=== PATIENT | male | born 1940 | race Caucasian/White ===

== ENCOUNTER 2021-02-13 06:53 | Day surgery (SDC) | payer MEDICARE, BC ==
[2021-02-12 16:14] LABS: BASOPHILS % (AUTO) 0.5 % (0-1); EOSINOPHILS # (AUTO) 0.1 X10'3 (0-0.9); EOSINOPHILS % (AUTO) 1.2 % (0-6); HEMATOCRIT 40.7 % (42.0-52.0); HEMOGLOBIN 13.5 g/dl (14.0-17.9); LYMPHOCYTES # (AUTO) 1.8 X10'3 (1.1-4.8); LYMPHOCYTES % (AUTO) 37.1 % (21-51); MEAN CORPUSCULAR HGB CONC 33.1 g/dL (33.0-36.5); MEAN CORPUSCULAR VOLUME 90.8 FL (78-98); MEAN PLATELET VOLUME 7.8 FL (7.4-10.4); MONOCYTES # (AUTO) 0.5 X10'3 (0-0.9); MONOCYTES % (AUTO) 9.5 % (2-12); NEUTROPHILS # (AUTO) 2.5 X10'3 (1.8-7.7); NEUTROPHILS % (AUTO) 51.7 % (42-75); PLATELET COUNT 173 X10'3 (140-440); RED BLOOD COUNT 4.48 X10'6 (4.70-6.10); WHITE BLOOD COUNT 4.9 X10'3 (4.5-11.0)
[2021-02-12 16:23] LABS: ALBUMIN 3.7 G/DL (3.4-5.0); ANION GAP 8 (8-16); BLOOD UREA NITROGEN 22 MG/DL (7-18); CALCIUM 8.7 MG/DL (8.5-10.1); CHLORIDE 107 MMOL/L (99-107); CREATININE 1.16 MG/DL (0.60-1.10); GLUCOSE 91 MG/DL (70-104); POTASSIUM 4.7 MMOL/L (3.5-5.1); SODIUM 145 MMOL/L (135-145); eGFR 61 ML/MIN
[2021-02-12 16:30] LABS: PARTIAL THROMBOPLASTIN TIME 35 SECONDS (22-32)
[~2021-02-13] VITALS: Ht 172.7 cm; Wt 76.4 kg
[2021-02-13] VITALS (16 sets, daily range): BP systolic 107–144; BP diastolic 56–79
[~2021-02-13 06:53] MED LIST: ASPI-611 PO; ATOR40TA7 PO; MULT-1074 PO; WARF5TAB76 PO
[2021-02-13] MEDS ORDERED: diphenhydrAMINE 25mg capsule PO PRN (07:15)
[2021-02-13] MEDS ORDERED: LIDOcaine/PRILOcaine 5gm cream TP ONE (07:15)
[2021-02-13] MEDS ORDERED: LORazepam 0.5 MG tablet PO PRN (07:15)
[2021-02-13] MEDS ORDERED: normal saline 1,000 ML IV SCH (07:15)
[2021-02-13] MEDS ORDERED: ENOX80DI8 SQ (07:29)
[2021-02-13] MEDS ORDERED: LIDOcaine 1% (10mg/ml)w/preservative injection 20ml MDV ONE (09:48)
[2021-02-13] MEDS ORDERED: midazolam 1 mg/ML 2ml injection ONE (09:48)
[2021-02-13] MEDS ORDERED: fentaNYL/PF 50MCG/1 ML 2ML syringe ONE (09:48)
[2021-02-13] MEDS ORDERED: verapamil 2.5 mg/ml inj IV ONE (09:48)
[2021-02-13] MEDS ORDERED: heparin 1,000unit/ml 10ml vial 10 ML ONE (09:48)
[2021-02-13] MEDS ORDERED: nitroGLYCERIN-Tridil 50MG/D5W 250 ML IV ONE (09:48)
[2021-02-13] MEDS ORDERED: iohexol 350MG/ML 100ml bottle IV ONE ×2 (09:49→11:21)
[2021-02-13] MEDS ORDERED: iohexol 350 MG/ML 50ML vial IV ONE ×2 (09:49→11:42)
[2021-02-13] MEDS ORDERED: heparin 25,000 UNIT/250ml bag 250 ML IV ONE (11:21)
[2021-02-13] MEDS ORDERED: clopidogrel 300mg tablet ONE (11:46)
[2021-02-13] MEDS ORDERED: atropine 0.1mg/ml 10ml syringe ONE (11:56)
[2021-02-13] MEDS ORDERED: HYDROcodone/acetaminophen 5mg/325mg tablet PO PRN (12:40)
[2021-02-13] MEDS ORDERED: normal saline 1000ml 1,000 ML IV SCH (12:40)
[2021-02-13] MEDS ORDERED: HYDROcodone/acetaminophen 10/325mg tab PO PRN (12:40)
[2021-02-13] MEDS ORDERED: proCHLORperazine 10 MG/2 ml inj IV PRN (12:45)
[2021-02-13] MEDS ORDERED: acetaminophen 325mg tablet PO PRN ×2 (12:45)
[2021-02-13] MEDS ORDERED: magnesium hydroxide 30ml (MOM) UD suspension PO PRN (12:45)
[2021-02-13] MEDS ORDERED: docusate sod 100mg capsule PO SCH (20:00)
[2021-02-14] MEDS ORDERED: clopidogrel 75mg tablet PO SCH (08:00)
== END 2021-02-13 20:00 | disposition home or self-care (01) ==
LOC: SSTAY O 06:53
PROVIDERS: ATTEND Internal Medicine Cardiovascular Disease
DX: R94.39 Abnormal result of other cardiovascular function study (principal); R06.02 Shortness of breath; I25.10 Atherosclerotic heart disease of native coronary artery without angina pectoris; E78.5 Hyperlipidemia, unspecified; I50.9 Heart failure, unspecified; M47.896 Other spondylosis, lumbar region; M47.894 Other spondylosis, thoracic region; G89.29 Other chronic pain; Z85.46 Personal history of malignant neoplasm of prostate; K21.9 Gastro-esophageal reflux disease without esophagitis; Z85.828 Personal history of other malignant neoplasm of skin; Z87.891 Personal history of nicotine dependence; Z86.010 Personal history of colon polyps; Z86.718 Personal history of other venous thrombosis and embolism; Z79.01 Long term (current) use of anticoagulants; Z98.890 Other specified postprocedural states; Z79.899 Other long term (current) drug therapy; Z92.21 Personal history of antineoplastic chemotherapy; Z82.49 Family history of ischemic heart disease and other diseases of the circulatory system; Z80.42 Family history of malignant neoplasm of prostate
CPT/HCPCS: 36415; 76937; 80048; 85025; 85347; 85610; 85730; 93005; 93458; 99152; 99153; C1725; C1751; C1769; C1874; C1894; C9600; J0461; J1644; J2001; J2250; J3010; J7030; Q0163; Q9967; A4620; A5120; A6258; J3490

== ENCOUNTER 2021-05-21 06:03 | Day surgery (SDC) | payer MEDICARE, BC ==
[2021-05-20 12:32] LABS: BASOPHILS % (AUTO) 0.6 % (0-1); EOSINOPHILS # (AUTO) 0.1 X10'3 (0-0.9); EOSINOPHILS % (AUTO) 1.3 % (0-6); HEMATOCRIT 39.9 % (42.0-52.0); HEMOGLOBIN 13.4 g/dl (14.0-17.9); LYMPHOCYTES # (AUTO) 1.7 X10'3 (1.1-4.8); LYMPHOCYTES % (AUTO) 35.2 % (21-51); MEAN CORPUSCULAR HEMOGLOBIN 30.9 PG (27.0-31.0); MEAN CORPUSCULAR HGB CONC 33.7 g/dL (33.0-36.5); MEAN CORPUSCULAR VOLUME 91.8 FL (78-98); MONOCYTES # (AUTO) 0.5 X10'3 (0-0.9); MONOCYTES % (AUTO) 9.9 % (2-12); NEUTROPHILS # (AUTO) 2.5 X10'3 (1.8-7.7); PLATELET COUNT 151 X10'3 (140-440); RED BLOOD COUNT 4.34 X10'6 (4.70-6.10); RED CELL DISTRIBUTION WIDTH 14.2 % (11.5-14.5); WHITE BLOOD COUNT 4.8 X10'3 (4.5-11.0)
[2021-05-20 12:37] LABS: ALBUMIN 3.6 G/DL (3.4-5.0); ANION GAP 4 (8-16); BLOOD UREA NITROGEN 18 MG/DL (7-18); BUN/CREATININE RATIO 16.1 (5.4-32.0); CALCIUM 8.5 MG/DL (8.5-10.1); CHLORIDE 107 MMOL/L (99-107); CREATININE 1.12 MG/DL (0.60-1.10); GLUCOSE 86 MG/DL (70-104); POTASSIUM 4.6 MMOL/L (3.5-5.1); SODIUM 142 MMOL/L (135-145); TOTAL CARBON DIOXIDE 30.7 MMOL/L (24-32); eGFR 63 ML/MIN
[2021-05-20 12:40] LABS: PARTIAL THROMBOPLASTIN TIME 39 SECONDS (22-32)
[~2021-05-21] VITALS: Ht 172.7 cm; Wt 75.7 kg
[2021-05-21] VITALS (12 sets, daily range): BP systolic 97–147; BP diastolic 47–140
[~2021-05-21 06:03] MED LIST changes: -ASPI-611 PO; +ENOX80DI8 SQ
[2021-05-21] MEDS ORDERED: cefazolin/dext.iso 2gm/100ml 100 ML IV ONE (06:25)
[2021-05-21] MEDS ORDERED: CLOP75TA15 PO (06:28)
[2021-05-21] MEDS ORDERED: ENOX80DI8 SQ (06:49)
[2021-05-21] MEDS ORDERED: ENOX80SY7 SUBCUT (06:49)
[2021-05-21] MEDS ORDERED: fentaNYL/PF 50MCG/1 ML 2ML syringe ONE (07:24)
[2021-05-21] MEDS ORDERED: midazolam 1 mg/ML 2ml injection ONE (07:24)
[2021-05-21] MEDS ORDERED: LIDOcaine 1% W/epiNEPHrine 1:100,000 20ml vial ONE ×2 (07:24→07:48)
[2021-05-21] MEDS ORDERED: ceFAZolin 1000mg inj ONE (07:24)
[2021-05-21] MEDS ORDERED: HYDROcodone/acetaminophen 10/325mg tab PO PRN (09:40)
[2021-05-21] MEDS ORDERED: HYDROcodone/acetaminophen 5mg/325mg tablet PO PRN (09:40)
[2021-05-21] MEDS ORDERED: vancomycin/NS 1 GM ADD-VANTAGE 250 ML X 1 DOSE IV ONE (11:00)
== END 2021-05-21 15:00 | disposition home or self-care (01) ==
LOC: SSTAY O 06:03
PROVIDERS: ATTEND Internal Medicine Cardiovascular Disease
DX: I49.5 Sick sinus syndrome (principal); I48.0 Paroxysmal atrial fibrillation; I25.10 Atherosclerotic heart disease of native coronary artery without angina pectoris; K21.9 Gastro-esophageal reflux disease without esophagitis; G89.29 Other chronic pain; E78.5 Hyperlipidemia, unspecified; Z79.01 Long term (current) use of anticoagulants; Z79.899 Other long term (current) drug therapy; Z95.5 Presence of coronary angioplasty implant and graft; Z86.718 Personal history of other venous thrombosis and embolism; Z85.46 Personal history of malignant neoplasm of prostate; Z85.828 Personal history of other malignant neoplasm of skin; Z98.890 Other specified postprocedural states; Z87.891 Personal history of nicotine dependence; Z80.42 Family history of malignant neoplasm of prostate; Z82.49 Family history of ischemic heart disease and other diseases of the circulatory system
CPT/HCPCS: 33208; 36415; 71046; 80048; 85025; 85610; 85730; 93005; 99152; 99153; C1785; C1894; C1898; J0690; J2250; J3010; J3370; A4565; A4620; A6258; A6449

== ENCOUNTER 2021-05-23 17:42 | Emergency (ER) | payer MEDICARE, BC ==
[~2021-05-23] VITALS: Ht 172.7 cm; Wt 75.4 kg
[~2021-05-23 17:42] MED LIST changes: +CLOP75TA15 PO; -ENOX80DI8 SQ; +ENOX80SY7 SUBCUT
[2021-05-23 17:45] VITALS: BP 151/81
--- NOTE | 2021-05-23 18:36 | NUR ---
Dressing to left chest changed to non adherent with sterile 4x4 gauze with tegaderm,pressure applied per Dr. Millard.We will monitor.
--- NOTE | 2021-05-23 19:32 | NUR ---
Dressing removed to check bleeding. Scant blood on dressing. Alginate dressing applied, covered with nonstick, then sterile gauze. Large tegaderm over the area. Bag of NS placed over the wound to apply pressure.
== END 2021-05-23 20:39 | disposition home or self-care (01) ==
LOC: ER 17:43
DX: L76.22 Postprocedural hemorrhage of skin and subcutaneous tissue following other procedure (principal); E78.00 Pure hypercholesterolemia, unspecified; Z48.01 Encounter for change or removal of surgical wound dressing; Z98.890 Other specified postprocedural states; Z95.0 Presence of cardiac pacemaker; Z79.01 Long term (current) use of anticoagulants; Z79.899 Other long term (current) drug therapy
CPT/HCPCS: 99281; 99283

== ENCOUNTER 2021-12-06 12:03 | Emergency (ER) | payer MEDICARE, BC ==
[~2021-12-06] VITALS: Ht 172.7 cm; Wt 75.0 kg
[2021-12-06 12:13] VITALS: BP 127/70
[2021-12-06] MEDS ORDERED: bacitracin 15gm ointment TP ONE (13:55)
[2021-12-06] MEDS ORDERED: TETanus/Pertussis (Acell)/Diphther VAC/PF (Tdap-Adult) 0.5ml syringe IMVAC ONE (13:55)
== END 2021-12-06 14:49 | disposition home or self-care (01) ==
LOC: ER 12:04
DX: S61.211A Laceration without foreign body of left index finger without damage to nail, initial encounter (principal); E78.00 Pure hypercholesterolemia, unspecified; Z95.0 Presence of cardiac pacemaker; Z98.1 Arthrodesis status; Z79.899 Other long term (current) drug therapy; Z79.01 Long term (current) use of anticoagulants; W01.0XXA Fall on same level from slipping, tripping and stumbling without subsequent striking against object, initial encounter; Y93.89 Activity, other specified; Y92.89 Other specified places as the place of occurrence of the external cause; Y99.8 Other external cause status
CPT/HCPCS: 12001; 90471; 90472; 90715; 99283

== ENCOUNTER 2022-09-28 08:43 | Outpatient (CLI) | payer MEDICARE, BC | END 2022-09-28 23:59 | disposition home or self-care (01) | LOC: RAD 08:43 | PROVIDERS: ATTEND Otolaryngology Otology & Neurotology | DX: H91.93 Unspecified hearing loss, bilateral (principal) | CPT/HCPCS: 70553 ==

== ENCOUNTER 2024-06-15 19:30 | Inpatient (IN) | payer MEDICARE, OTHER ==
[~2024-06-15] VITALS: Ht 172.7 cm; Wt 70.4 kg
[~2024-06-15 19:30] MED LIST changes: +ATOR-411 PO; -ATOR40TA7 PO
[2024-06-15] MEDS: acetaminophen 1,000mg/100ml IV 100 ML IV ONE (20:01)
[2024-06-15] MEDS: normal saline 1000ML IV soln IVB ONE (20:02)
--- NOTE | 2024-06-15 20:02 | NUR ---
Spoke with ed attending regarding fluid amount ordered. infomred patient recieved 1L NS by ems. instructed to only administer 1L NS at this time. totaling 2L NS all together
[2024-06-15 20:16] LABS: BASOPHILS % (AUTO) 0.3 % (0-1); EOSINOPHILS % (AUTO) 0.1 % (0-6); HEMATOCRIT 37.5 % (42.0-52.0); HEMOGLOBIN 12.9 g/dl (14.0-17.9); LYMPHOCYTES % (AUTO) 16.3 % (21-51); MEAN CORPUSCULAR HEMOGLOBIN 32.6 PG (27.0-31.0); MEAN CORPUSCULAR HGB CONC 34.5 g/dL (33.0-36.5); MEAN CORPUSCULAR VOLUME 94.4 FL (78-98); MEAN PLATELET VOLUME 7.9 FL (7.4-10.4); MONOCYTES # (AUTO) 0.7 X10'3 (0-0.9); MONOCYTES % (AUTO) 11.6 % (2-12); NEUTROPHILS # (AUTO) 4.3 X10'3 (1.8-7.7); NEUTROPHILS % (AUTO) 71.7 % (42-75); PLATELET COUNT 125 X10'3 (140-440); RED BLOOD COUNT 3.97 X10'6 (4.70-6.10); RED CELL DISTRIBUTION WIDTH 14.4 % (11.5-14.5)
[2024-06-15 20:35] LABS: ALBUMIN 2.8 G/DL (3.4-5.0); ANION GAP 5 (8-16); BLOOD UREA NITROGEN 18 MG/DL (7-18); BUN/CREATININE RATIO 13.6 (10.0-20.0); CALCIUM 8.1 MG/DL (8.5-10.1); CHLORIDE 106 MMOL/L (99-107); CREATININE 1.32 MG/DL (0.60-1.10); GLUCOSE 134 MG/DL (70-104); MAGNESIUM 1.7 MG/DL (1.5-2.4); POTASSIUM 4.4 MMOL/L (3.5-5.1); PRO BRAIN NATRIURETIC PEPTIDE 6621 PG/ML (0-450); SODIUM 139 MMOL/L (135-145); TOTAL CARBON DIOXIDE 27.6 MMOL/L (24-32); eCRCL 40 ML/MIN; eGFR 52 ML/MIN
[2024-06-15] MEDS: ondansetron/PF 4mg/2ml inj IV ONE (20:53)
--- NOTE | 2024-06-15 21:30 | NUR ---
ed md informed patients bp 77/51 post 2L NS
--- NOTE | 2024-06-15 21:33 | NUR ---
manual bp obtained 76/45 md informed
[2024-06-15] MEDS: normal saline 1000ml 1,000 ML IV ONE (21:55)
[2024-06-15] MEDS: NORepinephrine 8mg/ 250ml NS 250 ML IV SCH (22:01)
[2024-06-15 22:04] LABS: BILIRUBIN,URINE NEGATIVE (Neg); CLARITY,URINE SLIGHTLY CLOUDY (Clear); COLOR,URINE YELLOW (Yellow); GLUCOSE, URINE NEGATIVE (Neg); KETONES,URINE TRACE mg/dl (Neg); LEUKOCYTE ESTERASE ,URINE NEGATIVE (Neg); NITRITES, URINE NEGATIVE (Neg); OCCULT BLOOD,URINE MODERATE (Neg); PH,URINE 5.5 (4.8-8.0); PROTEIN,URINE TRACE mg/dl (Neg)
[2024-06-15] MEDS: NORepinephrine 8mg/ 250ml NS 250 ML IV ONE (22:07)
[2024-06-15 22:11] LABS: UA COLLECTION TYPE URINAL
[2024-06-15 22:13] LABS: BACTERIA,URINE FEW /HPF (Neg); MUCUS STRANDS MANY /LPF (Neg); SQUAMOUS EPITHELIAL CELL,UR NONE SEEN /LPF (FEW); WBC,URINE 0-4 /HPF (0-4)
[2024-06-15 22:14] LABS: COARSE GRANULAR CAST 0-3 /LPF (NEGATIVE); HYALINE CASTS 0-3 /LPF (NEGATIVE)
--- NOTE | 2024-06-16 00:28 | NUR ---
KOREY HEATH AT BEDSIDE TO PLACE CENTRAL LINE AT THIS TIME
--- NOTE | 2024-06-16 00:39 | NUR ---
ED ATTENDING AT BEDSIDE FOR CENTRAL LINE INSERTION AT THIS TIME
--- NOTE | 2024-06-16 01:10 | NUR ---
Per MD okayed to use central line, tan moved to central line at this time.
[2024-06-16] MEDS: dexamethasone 4mg tablet PO ONE (01:27)
--- NOTE | 2024-06-16 02:04 | NUR ---
Melanie called for verification of pmh and medication reconciliation
[2024-06-16] MEDS ORDERED: APIX5TAB3 PO (02:06)
[2024-06-16] MEDS ORDERED: CARV3.122 PO (02:06)
--- NOTE | 2024-06-16 04:41 | NUR ---
[employer] called for orders for patient. Instructed to discuss with ED MD about hospitalist consult d/t no longer on norepi
--- NOTE | 2024-06-16 04:50 | NUR ---
Hospitalist at bedside at this time
[2024-06-16] MEDS ORDERED: potassium Cl 40MEQ/1/2NS 520ml 520 ML IV PRN (05:10)
[2024-06-16] MEDS ORDERED: magnesium Cl slow-release 64mg tablet PO PRN (05:10)
[2024-06-16] MEDS ORDERED: magnesium hydroxide 30ml (MOM) UD suspension PO PRN (05:10)
[2024-06-16] MEDS ORDERED: acetaminophen 325mg tablet PO PRN (05:10)
[2024-06-16] MEDS ORDERED: potassium Cl 20 mEq SR tablet PO PRN ×2 (05:10)
[2024-06-16] MEDS ORDERED: magnesium sulf-water 4G/100mL 100 ML IV PRN (05:10)
[2024-06-16] MEDS ORDERED: magnesium sulf-water 2g/50mL 50 ML IV PRN (05:10)
[2024-06-16] MEDS: PERFLUTREN PROTEIN-A MICROSPHR (Optison) 0.22 MG/ML 3ML VIAL IV ONE (05:10)
[2024-06-16] MEDS ORDERED: ondansetron/PF 4mg/2ml inj IV PRN (05:10)
[2024-06-16] MEDS ORDERED: mag hydrox/Alum hydrox/simeth 30ml oral suspension PO PRN (05:10)
[2024-06-16] MEDS: carVEDilol 3.125mg tablet PO SCH (07:19)
[2024-06-16] MEDS: docusate sod 100mg capsule PO SCH (07:19)
[2024-06-16] MEDS: apixaban 5mg tablet PO SCH (07:19)
[2024-06-16] MEDS: clopidogrel 75mg tablet PO SCH (07:19)
[2024-06-16] MEDS: multivitamins, therapeutics tablet PO SCH (07:20)
--- NOTE | 2024-06-16 07:47 | NUR ---
NO MAINTAINENCE FLUIDS ORDERED FOR PATIENT. WHEN GOING FROM LAYING TO SITTING POSITION IN [facility] PATIENT'S HR WENT FROM 109 TO 137. PAGED SUDDAPALLI AT THIS TIME REGARDING FINDINGS. NO NEW ORDERS AT THIS TIME. STATES WILL COME DOWN AND ASSESS PATIENT.
[2024-06-16 07:53] LABS: APTT 28 SECONDS (22-32); INR 1.1 INR; PROTHROMBIN TIME 11.3 SECONDS (9.0-12.0)
[2024-06-16] MEDS ORDERED: heparin, porcine 5000 units/ml vial SQ SCH (08:00)
[2024-06-16] MEDS: K and/or MAG REPLACEMENT MC SCH (08:00)
--- NOTE | 2024-06-16 08:19 | NUR ---
RESIDENT DR. YODER CAME DOWN AND WAS INSTRUCTED TO RE-EVAL PT HR IN APPROX 45 TO SEE PT RESPONSE TO EARLIER ADMINISTERED CARVEDILOL. REPORTED OFF INSTRUCTIONS TO PRIMARY NURSE JUANITA
[2024-06-16 08:55] LABS: D-DIMER 0.94 MG/L FEU (0-0.50)
[2024-06-16 09:01] LABS: C-REACTIVE PROTEIN 5.94 MG/DL (0.0-0.5); LACTATE DEHYDROGENASE 206 U/L (85-227)
[2024-06-16 09:17] LABS: BASOPHILS % (AUTO) 0.3 % (0-1); EOSINOPHILS % (AUTO) 0 % (0-6); HEMATOCRIT 38.4 % (42.0-52.0); HEMOGLOBIN 12.7 g/dl (14.0-17.9); LYMPHOCYTES # (AUTO) 0.8 X10'3 (1.1-4.8); LYMPHOCYTES % (AUTO) 19.7 % (21-51); MEAN CORPUSCULAR VOLUME 93.7 FL (78-98); MEAN PLATELET VOLUME 8.5 FL (7.4-10.4); MONOCYTES # (AUTO) 0.2 X10'3 (0-0.9); MONOCYTES % (AUTO) 6.1 % (2-12); NEUTROPHILS % (AUTO) 73.9 % (42-75); PLATELET COUNT 124 X10'3 (140-440); RED BLOOD COUNT 4.09 X10'6 (4.70-6.10); RED CELL DISTRIBUTION WIDTH 14.4 % (11.5-14.5)
[2024-06-16 09:20] LABS: ALBUMIN 2.8 G/DL (3.4-5.0); ANION GAP 8 (8-16); BLOOD UREA NITROGEN 19 MG/DL (7-18); BUN/CREATININE RATIO 18.8 (10.0-20.0); CALCIUM 8.2 MG/DL (8.5-10.1); CHLORIDE 107 MMOL/L (99-107); CREATININE 1.01 MG/DL (0.60-1.10); GLUCOSE 100 MG/DL (70-104); POTASSIUM 4.4 MMOL/L (3.5-5.1); SODIUM 141 MMOL/L (135-145); eCRCL 53 ML/MIN; eGFR 71 ML/MIN
--- NOTE | 2024-06-16 10:28 | NUR ---
Son called for an update. Float nurse updated son.
[2024-06-16] MEDS: normal saline 1000ml 1,000 ML IV SCH ×3 (10:55→18:55)
--- NOTE | 2024-06-16 10:55 | NUR ---
SANDRA PAGED REGARDING CURRENT BP. SEE CHARTING. TOTAL OF 2000ML NS GIVEN ON PREVIOUS SHIFT. VERBAL ORDER PER SANDRA TO GIVE NS [address] PATIENT ON MAINTANCE FLUIDS OF 150CC/HR AFTER. NEW MED ORDERS. SEE EMAR. LUNGS CTA BILATERALLY, NO EDEMA IN LOWER EXTREMITIES, DENIES SOB AT THIS TIME. PATIENT CLINICALY STABLE TO HANDLE FLUID AT THIS TIME.
[2024-06-16] MEDS ORDERED: REMDESIVIR INJ (loading dose) 200 MG in normal saline 100ml IV soln 100 ML IV ONE (11:05)
[2024-06-16] MEDS: methylPREDNISolone sod succ 125mg/2ml vial IV ONE ×2 (11:15→12:36)
[2024-06-16] MEDS: normal saline 1000ml 1,000 ML IVB ONE (11:24)
[2024-06-16] MEDS ORDERED: CARV6.2555 PO (11:27)
--- NOTE | 2024-06-16 12:24 | NUR ---
PCU CHARGE NURSE UNWILLING TO ACCEPT PT TO FLOOR UNLESS LEVOPHED DRIP IS CANCELLED. IT HAS BEEN OFF SINCE AROUND 0200. T/C TO DR FLORES WHO GAVE VERBAL ORDER TO CANCEL LEVOPHED
--- NOTE | 2024-06-16 12:30 | NUR ---
CALLED TO GIVE REPORT. PER CHARGE, ALICIA CRANE NOT AVAILABLE TO TAKE REPORT AT THIS TIME. AWAITING CALLBACK.
--- NOTE | 2024-06-16 12:40 | NUR ---
CALLED BACK TO PCU TO GIVE REPORT TO ALICIA BECK. ROYCE NOT AVAILABLE TO TAKE REPORT. ASKED TO GIVE REPORT TO CHARGE. CHARGE WANTS TO WAIT 5 MORE MINUTES. IVETT ZARAGOZA RN CHARGE AWARE.
[2024-06-16 14:41] VITALS: BP 134/89; PULSE 68; RESP 14; TEMP 97.8; O2SAT 99
--- NOTE | 2024-06-16 15:47 | NUR ---
Nutrition Consult "wt loss": Pt admit DX COVID-19, ARMIDA, and hemodynamic instability requiring IVF per EMR. Pt reports 24-33 pounds wt loss but also no decreased intake [employer] per RN Malnutrition Screen. PO ~44% avg first two regular diet meals not meeting estimated needs. RD attempted TC to pt room but no answer was able to contact SO in EMR via TC. Per SO, pt is very [place] [address] typically eats 2 meals breakfast and 3-4pm then nighttime snacks. SO reports UBW ~155-160 pounds last year w/ appetite generally lower but no changes to eating habits. Per SO, tried to discuss Ensures but pt declined at home; given PO trends will trial Ensure Enlive TIDWM at this time- dietary notified. Pt current bed scaled wt 145 pounds though unsure if actually scaled wt w/ +3L fluid balance since admit this AM per EMR. RD notified MD of recs for new wt this admit. If current wt accurate would be ~6% UBW loss past year but given both pt and SO reporting no changes to meal patterns lacks minimum two malnutrition criteria at this time. Will monitor for further malnutrition criteria and nutrition intervention needs this admit. Rec: 1. Continue regular diet 2. Trial Ensure Enlive TIDWM; encourage PO meals/ONS 3. Monitor PO trends and ONS acceptance to adjustment to nutrition POC 4. IF inadequate intake persists; routine MVM w/ Fe supplementation 5. Weekly wt; monitor for wt trends w/ +3L fluid balance since admit this AM in EMR Addendum: 06/16/24 at [address] Amended: Links added.
[2024-06-16] MEDS: methylPREDNISolone sod succ/PF 40mg inj. IV SCH (15:59)
[2024-06-16 18:00] VITALS: BP 152/79; PULSE 69; RESP 16; TEMP 96; O2SAT 98
[2024-06-16] MEDS: lactose-reduced food (Ensure Enlive) - 237ml bottle PO SCH (18:03)
--- NOTE | 2024-06-16 18:12 | NUR ---
Problems reprioritized. Patient report given, questions answered & plan of care reviewed with Yvonne. Addendum: 06/16/24 at 1813 by Pancho Gonzales RN Amended: Links added.
--- NOTE | 2024-06-16 18:41 | NUR ---
Patient in room PCU 3009. I have received report from Pancho VARGAS and had the opportunity to ask questions and assume patient care.
[2024-06-16] MEDS ORDERED: methylPREDNISolone sod succ/PF 40mg inj. IV SCH (19:00)
[2024-06-16 20:00] VITALS: RESP 16; O2SAT 98
[2024-06-16 22:00] VITALS: BP 164/84; PULSE 70; RESP 20; TEMP 98.7; O2SAT 97
[2024-06-16] MEDS ORDERED: haloperidol 5mg tablet PO PRN (22:55)
[2024-06-17] VITALS (8 sets, daily range): BP systolic 127–161; BP diastolic 69–89; PULSE 60–80; RESP 12–19; TEMP 96.9–97.7; O2SAT 96–100
[2024-06-17 05:53] LABS: BASOPHILS % (AUTO) 0.1 % (0-1); EOSINOPHILS % (AUTO) 0 % (0-6); HEMATOCRIT 33.3 % (42.0-52.0); HEMOGLOBIN 11.2 g/dl (14.0-17.9); LYMPHOCYTES # (AUTO) 0.8 X10'3 (1.1-4.8); LYMPHOCYTES % (AUTO) 12.9 % (21-51); MEAN CORPUSCULAR HEMOGLOBIN 31.4 PG (27.0-31.0); MEAN CORPUSCULAR HGB CONC 33.6 g/dL (33.0-36.5); MEAN CORPUSCULAR VOLUME 93.4 FL (78-98); MEAN PLATELET VOLUME 8.4 FL (7.4-10.4); MONOCYTES # (AUTO) 0.3 X10'3 (0-0.9); MONOCYTES % (AUTO) 4.7 % (2-12); NEUTROPHILS # (AUTO) 5.3 X10'3 (1.8-7.7); NEUTROPHILS % (AUTO) 82.3 % (42-75); PLATELET COUNT 110 X10'3 (140-440); RED BLOOD COUNT 3.56 X10'6 (4.70-6.10); RED CELL DISTRIBUTION WIDTH 14.2 % (11.5-14.5); WHITE BLOOD COUNT 6.4 X10'3 (4.5-11.0)
[2024-06-17 06:12] LABS: D-DIMER < 0.19 MG/L FEU (0-0.50)
[2024-06-17 06:22] LABS: ALBUMIN 2.7 G/DL (3.4-5.0); ANION GAP 8 (8-16); BLOOD UREA NITROGEN 25 MG/DL (7-18); BUN/CREATININE RATIO 26.9 (10.0-20.0); C-REACTIVE PROTEIN 3.09 MG/DL (0.0-0.5); CALCIUM 8.3 MG/DL (8.5-10.1); CHLORIDE 109 MMOL/L (99-107); CHOL/HDL RATIO 2.5 (0.00-4.99); CHOLESTEROL 110 MG/DL (0-200); CREATININE 0.93 MG/DL (0.60-1.10); GLUCOSE 123 MG/DL (70-104); HDL CHOLESTEROL 44 MG/DL (35-60); LDL CHOLESTEROL 56 MG/DL (50-100); POTASSIUM 4.2 MMOL/L (3.5-5.1); SODIUM 142 MMOL/L (135-145); TOTAL CARBON DIOXIDE 24.9 MMOL/L (24-32); TRIGLYCERIDES 44 MG/DL (20-135); eCRCL 59 ML/MIN; eGFR 78 ML/MIN
--- NOTE | 2024-06-17 06:30 | NUR ---
Patient in room U 3009. I have received report from Yvonne VARGAS and had the opportunity to ask questions and assume patient care. Addendum: 06/17/24 at 0701 by Krista Ruth RN Amended: Links added.
[2024-06-17 06:39] LABS: LACTATE DEHYDROGENASE 202 U/L (85-227)
--- NOTE | 2024-06-17 06:42 | NUR ---
Problems reprioritized. Patient report given, questions answered & plan of care reviewed with Krista VARGAS.
[2024-06-17] MEDS ORDERED: REMDESIVIR INJ (loading dose) 100 MG in normal saline 100ml IV soln 100 ML IV SCH (08:00)
[2024-06-17] MEDS: vancomycin/NS 1 GM ADD-VANTAGE 250 ML IV SCH (16:39)
[2024-06-17] MEDS: carvedilol 6.25mg tablet PO SCH (19:39)
[2024-06-17] MEDS: methylPREDNISolone sod succ/PF 40mg inj. IV SCH (19:40)
[2024-06-18] VITALS (7 sets, daily range): BP systolic 129–146; BP diastolic 66–75; PULSE 54–61; RESP 14–16; TEMP 96.5–97.7; O2SAT 97–98
[2024-06-18 06:24] LABS: BASOPHILS % (AUTO) 0 % (0-1); EOSINOPHILS % (AUTO) 0 % (0-6); HEMATOCRIT 31.7 % (42.0-52.0); HEMOGLOBIN 10.8 g/dl (14.0-17.9); LYMPHOCYTES # (AUTO) 0.8 X10'3 (1.1-4.8); LYMPHOCYTES % (AUTO) 7.4 % (21-51); MEAN CORPUSCULAR HEMOGLOBIN 31.6 PG (27.0-31.0); MEAN CORPUSCULAR VOLUME 92.8 FL (78-98); MEAN PLATELET VOLUME 8.1 FL (7.4-10.4); MONOCYTES # (AUTO) 0.5 X10'3 (0-0.9); MONOCYTES % (AUTO) 4.9 % (2-12); NEUTROPHILS # (AUTO) 9.8 X10'3 (1.8-7.7); NEUTROPHILS % (AUTO) 87.7 % (42-75); PLATELET COUNT 122 X10'3 (140-440); RED BLOOD COUNT 3.41 X10'6 (4.70-6.10); RED CELL DISTRIBUTION WIDTH 14.1 % (11.5-14.5); WHITE BLOOD COUNT 11.1 X10'3 (4.5-11.0)
[2024-06-18 06:27] LABS: D-DIMER 0.51 MG/L FEU (0-0.50)
[2024-06-18 06:40] LABS: ALBUMIN 2.7 G/DL (3.4-5.0); ANION GAP 6 (8-16); BLOOD UREA NITROGEN 21 MG/DL (7-18); BUN/CREATININE RATIO 22.8 (10.0-20.0); C-REACTIVE PROTEIN 1.67 MG/DL (0.0-0.5); CALCIUM 8.6 MG/DL (8.5-10.1); CHLORIDE 108 MMOL/L (99-107); CREATININE 0.92 MG/DL (0.60-1.10); GLUCOSE 119 MG/DL (70-104); LACTATE DEHYDROGENASE 184 U/L (85-227); POTASSIUM 4.1 MMOL/L (3.5-5.1); SODIUM 141 MMOL/L (135-145); TOTAL CARBON DIOXIDE 27.5 MMOL/L (24-32); eCRCL 60 ML/MIN; eGFR 79 ML/MIN
[2024-06-18] MEDS: atorvastatin 20mg tablet PO SCH (08:00)
--- NOTE | 2024-06-18 22:00 | NUR ---
YUMIKO documentation: I have reviewed and agree with all interventions, assessments performed and documented by Marialuisa Miranda LVN.
[2024-06-19 02:00] VITALS: BP 162/80; PULSE 60; RESP 16; TEMP 97.5; O2SAT 60
--- NOTE | 2024-06-19 06:30 | NUR ---
Patient in room PCU 3009. I have received report from Marialuisa CALDERON and had the opportunity to ask questions and assume patient care.
--- NOTE | 2024-06-19 06:30 | NUR ---
Problems reprioritized. Patient report given, questions answered & plan of care reviewed with Kathy CALDERON.
[2024-06-19] MEDS: VANCOMYCIN LEVEL IV ONE (06:52)
[2024-06-19 07:00] VITALS: BP 169/80; PULSE 96; RESP 18; TEMP 97.3; O2SAT 96
[2024-06-19 07:06] LABS: D-DIMER 0.53 MG/L FEU (0-0.50)
[2024-06-19 07:32] LABS: ALBUMIN 2.8 G/DL (3.4-5.0); ANION GAP 8 (8-16); BLOOD UREA NITROGEN 20 MG/DL (7-18); BUN/CREATININE RATIO 21.3 (10.0-20.0); C-REACTIVE PROTEIN 1.24 MG/DL (0.0-0.5); CALCIUM 8.4 MG/DL (8.5-10.1); CHLORIDE 105 MMOL/L (99-107); CREATININE 0.94 MG/DL (0.60-1.10); GLUCOSE 109 MG/DL (70-104); SODIUM 142 MMOL/L (135-145); TOTAL CARBON DIOXIDE 29.5 MMOL/L (24-32); VANCOMYCIN,TROUGH 6.7 ug/mL (10.0-20.0); eCRCL 59 ML/MIN; eGFR 77 ML/MIN
[2024-06-19 08:07] LABS: LACTATE DEHYDROGENASE 208 U/L (85-227)
[2024-06-19] MEDS: methylPREDNISolone sod succ/PF 40mg inj. IV SCH (08:52)
[2024-06-19 10:49] LABS: HEMOGLOBIN 11.9 G/DL (12.5-16.3); RED BLOOD COUNT 3.69 X10'6 (4.30-5.90); WHITE BLOOD COUNT 9.3 X10'3 (4.5-11.0)
[2024-06-19 10:50] LABS: BASOPHILS % 0 % (0-2); EOSINOPHILS % (AUTO) 0 % (0-5); HEMATOCRIT 33.6 % (43.5-53.7); LYMPHOCYTES # (AUTO) 0.7 X10'3 (0.6-4.1); LYMPHOCYTES % 8 % (24-44); MEAN CORPUSCULAR HEMOGLOBIN 32.2 PG (27-31.2); MEAN CORPUSCULAR HGB CONC 35.3 % (32-36); MONOCYTES # (AUTO) 0.4 X10'3 (0-0.9); MONOCYTES % 4 % (0-12); NEUTROPHILS # (AUTO) 8.2 X10'3 (>=1.4); PLATELET COUNT 131 X10'3 (130-400); RED CELL DISTRIBUTION WIDTH 14.2 % (11-16); SEGMENTED NEUTROPHILS % 88 % (36-66)
--- NOTE | 2024-06-19 11:00 | NUR ---
Reviewed and agree with Kathy CALDERON's assessment
--- NOTE | 2024-06-19 11:11 | NUR ---
Dr Sanchez gave order for throat lozenges for his sore throat.
[2024-06-19] MEDS ORDERED: HALLS - SOOTHE MENTHOL 1.8 MG cough drop LOZENGE MM PRN (11:15)
[2024-06-19] MEDS ORDERED: PRED10TA23 PO (12:47)
--- NOTE | 2024-06-19 14:50 | NUR ---
Patient discharged home with all belongings and discharge instructions. IV removed. Escorted out via wheel chair and left in private vehicle.
== END 2024-06-19 14:45 | disposition home or self-care (01) | DRG 177 ==
LOC: ER 19:31 → ED HOLD 06-16 05:14 → PCU 3S 06-16 14:42
PROVIDERS: ADMIT Internal Medicine Critical Care Medicine; ATTEND Family Medicine
PROC: 02HV33Z Insertion of Infusion Device into Superior Vena Cava, Percutaneous Approach (ICD-10-PCS; principal; 2024-06-15)
PROC: B548ZZA Ultrasonography of Superior Vena Cava, Guidance (ICD-10-PCS; 2024-06-15)
DX: U07.1 COVID-19 (principal); N17.0 Acute kidney failure with tubular necrosis; I95.9 Hypotension, unspecified; I48.91 Unspecified atrial fibrillation; I25.10 Atherosclerotic heart disease of native coronary artery without angina pectoris; E78.00 Pure hypercholesterolemia, unspecified; I49.5 Sick sinus syndrome; Z98.1 Arthrodesis status; Z95.0 Presence of cardiac pacemaker; Z95.5 Presence of coronary angioplasty implant and graft; Z79.899 Other long term (current) drug therapy; Z87.891 Personal history of nicotine dependence; Z86.718 Personal history of other venous thrombosis and embolism
CPT/HCPCS: 36415; 71045; 80048; 80061; 80202; 81001; 83605; 83615; 83735; 83880; 84145; 84484; 85025; 85379; 85610; 85730; 86140; 87040; 87077; 87081; 87502; 87503; 87811; 93005; 93306; 97116; 97161; 99285; A6258; A6402; A6449; C1751; G0378; J0131; J2405; J2919; J3370; J7030

== ENCOUNTER 2024-12-22 10:45 | Outpatient (CLI) | payer MEDICARE, OTHER ==
[~2024-12-22 10:45] MED LIST changes: +APIX5TAB3 PO; +CARV6.2555 PO; -ENOX80SY7 SUBCUT; -WARF5TAB76 PO; +iohexol 300mg/ml 100ml inj. ONE
== END 2024-12-22 23:59 | disposition home or self-care (01) ==
LOC: RAD 10:45
PROVIDERS: ATTEND Internal Medicine
DX: K76.0 Fatty (change of) liver, not elsewhere classified (principal); N28.1 Cyst of kidney, acquired; K57.30 Diverticulosis of large intestine without perforation or abscess without bleeding; K86.89 Other specified diseases of pancreas; J98.11 Atelectasis; I70.0 Atherosclerosis of aorta; R10.84 Generalized abdominal pain
CPT/HCPCS: 74177; Q9967

== ENCOUNTER 2025-08-09 12:43 | Outpatient (CLI) | payer MEDICARE, OTHER ==
[~2025-08-09 12:43] MED LIST changes: -iohexol 300mg/ml 100ml inj. ONE
--- NOTE | 2025-08-09 13:43 | RADIOLOGY REPORT ---
EXAM: CT CT HEAD INDICATION: HALLUCUNATIONS,COGNITIVE DECLINE TECHNIQUE: CT of the head without intravenous contrast. Radiation Dose : 1. Head: CT Dose: CTDI volume is mGy. Dose-length product is mGy*cm The dose indicators for CT are the volume Computed Tomography (CT) Dose Index (CTDIvol) and the Dose Length Product (DLP), and are measured in units of mGy and mGy-cm, respectively. These indicators are not patient dose, but values generated from the CT scanner acquisition factors. The report includes radiation exposure data for exposures received during this examination. COMPARISON: MRI HEAD on DOS: 09/28/22 FINDINGS: There is no evidence of acute intracranial hemorrhage, extra-axial collection, mass effect, midline shift, herniation or hydrocephalus. The ventricles, sulci and cisterns are age appropriate. The queen-white differentiation is intact. Patchy periventricular and subcortical white matter hypoattenuation is nonspecific but may be related to small vessel ischemic disease. Cochlear implant device on the left. Mild opacification of the left mastoid air cells. Paranasal sinuses are clear. IMPRESSION: Streak artifact from left cochlear implant device limits sensitivity of the examination. No acute intracranial abnormality. Radiation optimization: All CT scans at this facility use at least one of these dose optimization techniques: automated exposure control mA and/or kV adjustment per patient size (includes targeted exams where dose is matched to clinical indication) or iterative reconstruction.
== END 2025-08-09 23:59 | disposition home or self-care (01) ==
LOC: RAD 12:43
PROVIDERS: ATTEND Family Medicine
DX: R41.81 Age-related cognitive decline (principal); R44.3 Hallucinations, unspecified
CPT/HCPCS: 70450